=== PATIENT | female | born 1940 | race Asian ===

== ENCOUNTER 2019-11-07 12:22 | Emergency (ER) | payer OTHER ==
[~2019-11-07] VITALS: Ht 167.6 cm; Wt 60.3 kg
[2019-11-07 14:07] VITALS: BP 164/72
== END 2019-11-07 14:07 | disposition home or self-care (01) ==
LOC: ED 12:22
DX: L02.413 Cutaneous abscess of right upper limb (principal); Z90.710 Acquired absence of both cervix and uterus
CPT/HCPCS: J2001